=== PATIENT | female | born 1995 | race Caucasian/White ===

== ENCOUNTER 2017-12-16 05:55 | Emergency (ER) | payer OTHER ==
[~2017-12-16] VITALS: Ht 149.9 cm; Wt 55.3 kg
[2017-12-16 05:57] VITALS: TEMP 36.5; Ht 149.9 cm; Wt 55.3 kg
[2017-12-16] MEDS ORDERED: KETOROLAC TROMETHAMINE 60 MG/2 ML VIAL IM STA (06:03)
[2017-12-16] MEDS ORDERED: SERT100T PO (06:07)
[2017-12-16] MEDS ORDERED: VNTHFA/IN INH (06:08)
[2017-12-16] MEDS ORDERED: FLVHFA110 INH (06:08)
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
[2017-12-16] MEDS ORDERED: ONDANSETRON 4MG OD TAB PO ONE (06:45)
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
[2017-12-16] MEDS ORDERED: PROMETHAZINE HCL INJ 25 MG/ML 1 ML VIAL IM STA (07:07)
[2017-12-16] MEDS ORDERED: ACETAMINOPHEN 500 MG TAB PO STA (07:07)
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
[2017-12-16] MEDS ORDERED: ONDA4TAB10 SL (08:08)
[2017-12-16 08:20] VITALS: BP 111/72; PULSE 62; O2SAT 97
== END 2017-12-16 08:20 | disposition home or self-care (01) ==
LOC: EDBD 05:55 → C.EDB 05:57
DX: S06.0X0A Concussion without loss of consciousness, initial encounter (principal); S16.1XXA Strain of muscle, fascia and tendon at neck level, initial encounter; V89.2XXA Person injured in unspecified motor-vehicle accident, traffic, initial encounter; J45.909 Unspecified asthma, uncomplicated; Z88.5 Allergy status to narcotic agent; Z88.1 Allergy status to other antibiotic agents